=== PATIENT | female | born 1990 | race Caucasian/White ===

== ENCOUNTER → 2022-06-29 | Outpatient (CLI) | payer OTHER, SELFPAY ==
[2022-07-06 13:07] LABS: HPV APTIMA, High Risk Negative (Negative)
== END | disposition home or self-care (01) ==
LOC: LABSPEC 16:46
PROVIDERS: PCP Family Medicine; Referring Provider Advanced Practice Midwife; Visit Provider Advanced Practice Midwife
DX: Z01.419 Encounter for gynecological examination (general) (routine) without abnormal findings (principal)
CPT/HCPCS: 87624; 88175; G0145

== ENCOUNTER → 2023-12-19 | Outpatient (CLI) | payer OTHER, SELFPAY ==
[2023-12-19 11:22] LABS: T4 Free Direct 1.27 ng/dL (0.76-1.46)
== END | disposition home or self-care (01) ==
LOC: LAB 10:07
PROVIDERS: PCP Family Medicine; Referring Provider Advanced Practice Midwife; Visit Provider Advanced Practice Midwife
DX: N93.9 Abnormal uterine and vaginal bleeding, unspecified (principal)
CPT/HCPCS: 36415; 84439; 84443